=== PATIENT | female | born 1960 | race Caucasian/White ===

== ENCOUNTER 2018-12-11 18:00 | Emergency (ER) | payer OTHER ==
--- OUTSIDE RECORDS SUMMARY | 2018-12-11 18:02 | XMS REPORT | Clinical Summary ---
:1960 Author Organization [facility] Address [address] [place] [address] Care Team Providers Name Role Phone Baylee Hale Primary Care Provider Allergies Active Allergy Reactions Severity Noted Date Comments Brimonidine 05/07/2018 Atorvastatin 05/07/2018 Flu like symptoms - muscle cramping Moxifloxacin Anaphylaxis High 05/07/2018 Brimonidine Tartrate 09/09/2012 Bloody Red Eyes Codeine Nausea And Vomiting 05/07/2018 Medications Medication Sig Dispensed Refills Start Date End Date Status aspirin 81 MG EC Take 81 mg by 0 Active tablet mouth daily. dorzolamide-timolol 1 drop 2 0 Active (COSOPT) 22.3-6.8 (two) times mg/mL ophthalmic daily. solution latanoprost 1 drop 0 Active (XALATAN) 0.005 % nightly. ophthalmic solution levothyroxine Take 50 mcg 0 Active (SYNTHROID, by mouth LEVOTHROID) 50 MCG Every morning tablet on an empty stomach. multivitamin per Take 1 tablet 0 Active tablet by mouth daily. simvastatin (ZOCOR) Take 80 mg by 0 Active 80 MG tablet mouth nightly. ibandronate (BONIVA) Take 150 mg 0 05/07/2018 Discontinued 150 mg tablet by mouth every 30 (thirty) days Take in AM with glass of water prior to food, don't lie down for 30 minutes. . Active Problems Not on file Encounters Date Type Specialty Care Team Description 05/11/2018 Anesthesia Event Yamileth Rose MD 05/11/2018 Surgery Robel Verdugo,NASOLACRIMAL MD Elvis DUCT BALLOON DILATION 05/11/2018 Hospital Encounter Robel Verdugo Left nasolacrimal MD Elvis duct obstruction (Primary Dx) 05/07/2018 Hospital Encounter Pre-Admission Testing after 12/10/2017 Social History Tobacco Use Types Packs/Day Years Used Date Never Smoker Smokeless Tobacco: Never Used Alcohol Use Drinks/Week oz/Week Comments No Sex Assigned at Date Recorded Not on file Job Start Date Occupation Industry Not on file Not on file Not on file Travel History Travel Start Travel End No recent travel history available. Last Filed Vital Signs Vital Sign Reading Time Taken Blood Pressure 112/66 05/11/2018 2:45 PM CDT Pulse 66 05/11/2018 2:45 PM CDT Temperature 36.7 C (98 F) 05/11/2018 2:10 PM CDT Respiratory Rate 15 05/11/2018 2:45 PM CDT Oxygen Saturation 99% 05/11/2018 2:45 PM CDT Inhaled Oxygen Concentration - - Weight 59 kg (130 lb) 05/11/2018 12:17 PM CDT Height 167.6 cm (5' 6") 05/11/2018 12:17 PM CDT Body Mass Index 20.98 05/11/2018 12:17 PM CDT Plan of Treatment Not on file Procedures Procedure Name Priority Date/Time Associated Diagnosis Comments PROBING,NASOLACRIMAL 05/11/2018 1:06 PM Nasolacrimal duct DUCT BALLOON DILATION CDT obstruction, left after 12/10/2017 Results Not on fileafter 12/10/2017 Insurance Payer Benefit Plan / Group Subscriber ID Type Phone Address [facility] x[facility] HMO/POS CARE CHOICE (Home) [address] [place] [phone]
--- NOTE | 2018-12-11 20:27 | EDPHYS ---
Physician Documentation [facility] Name: Gisela Muñoz Age: 58 yrs Sex: Female : 1960 Arrival Date: 12/11/2018 Time: 18:05 Bed 12 Private MD: ED Physician Srinivas Leavitt HPI: 12/11 18:17 This 58 yrs old Female presents to ER via Ambulatory with complaints of Elbow pm1 Injury. 18:17 The patient or guardian complains of pain, that is acute. The complaints affect the pm1 right elbow. Context: The problem was sustained outdoors, resulted from a fall, while walking, tripped on edge of raised of concrete and hit her right elbow on concrete. No headache, head injury, neck pain, LOC. Onset: The symptoms/episode began/occurred today. Treatment prior to arrival includes: no previous treatment. Modifying factors: The symptoms are alleviated by remaining still, the symptoms are aggravated by movement, bending arm. Associated signs and symptoms: Pertinent positives: pain, swelling, Pertinent negatives: deformity, fever. The patient has not experienced similar symptoms in the past. The patient has not recently seen a physician. Historical: - Allergies: 18:11 Codeine; aj1 18:11 Avelox; aj1 - Home Meds: 18:11 glaucoma eye drops [Active]; levothyroxine oral [Active]; latanoprost 0.005 % aj1 ophthalmic drop 1 drop once daily [Active]; Pravachol Oral [Active]; dorzolamide 2 % ophthalmic drop 1 drop 3 times per day [Active]; - PMHx: 18:11 Hypothyroidism; Glaucoma; Hyperlipidemia; aj1 - PSHx: 18:11 Hysterectomy; aj1 - Immunization history:: Flu vaccine is up to date. - Social history:: Smoking status: Patient/guardian denies using tobacco. - Ebola Screening: : Patient denies travel to an Ebola-affected area in the 21 days before illness onset. ROS: 18:17 Constitutional: Negative for fever, chills, and weight loss, Eyes: Negative for injury, pm1 pain, redness, and discharge, ENT: Negative for injury, pain, and discharge, Neck: Negative for injury, pain, and swelling, Cardiovascular: Negative for chest pain, palpitations, and edema, Respiratory: Negative for shortness of breath, cough, wheezing, and pleuritic chest pain, Abdomen/GI: Negative for abdominal pain, nausea, vomiting, diarrhea, and constipation, Back: Negative for injury and pain, : Negative for injury, bleeding, discharge, and swelling. 18:17 Skin: Negative for injury, rash, and discoloration, Neuro: Negative for headache, weakness, numbness, tingling, and seizure. 18:17 MS/extremity: Positive for pain, swelling, of the right elbow, Negative for deformity. Exam: 18:17 Constitutional: This is a well developed, well nourished patient who is awake, alert, pm1 and in no acute distress. Head/Face: Normocephalic, atraumatic. Eyes: Pupils equal round and reactive to light, extra-ocular motions intact. Lids and lashes normal. Conjunctiva and sclera are non-icteric and not injected. Cornea within normal limits. Periorbital areas with no swelling, redness, or edema. ENT: Nares patent. No nasal discharge, no septal abnormalities noted. Tympanic membranes are normal and external auditory canals are clear. Oropharynx with no redness, swelling, or masses, exudates, or evidence of obstruction, uvula midline. Mucous membranes moist. Neck: Trachea midline, no thyromegaly or masses palpated, and no cervical lymphadenopathy. Supple, full range of motion without nuchal rigidity, or vertebral point tenderness. No Meningismus. Chest/axilla: Normal chest wall appearance and motion. Nontender with no deformity. No lesions are appreciated. Cardiovascular: Regular rate and rhythm with a normal S1 and S2. No gallops, murmurs, or rubs. Normal PMI, no JVD. No pulse deficits. Respiratory: Lungs have equal breath sounds bilaterally, clear to auscultation and percussion. No rales, rhonchi or wheezes noted. No increased work of breathing, no retractions or nasal flaring. Abdomen/GI: Soft, non-tender, with normal bowel sounds. No distension or tympany. No guarding or rebound. No evidence of tenderness throughout. Back: No spinal tenderness. No costovertebral tenderness. Full range of motion. Skin: Warm, dry with normal turgor. Normal color with no rashes, no lesions, and no evidence of cellulitis. 18:17 Musculoskeletal/extremity: Extremities: grossly normal except: noted in the right elbow: swelling, tenderness, There is no evidence of deformity, Pulses: noted to be 2+ in the right radial artery, the right hand Sensation intact. 18:17 Neuro: Orientation: is normal, Motor: is normal, moves all fours, Sensation: is normal, no obvious gross deficits, Gait: is steady, at a normal pace, without difficulty. Vital Signs: 18:11 BP 138 / 96; Pulse 87; Resp 18; Temp 98.1(O); Pulse Ox 98% on R/A; Weight 56.7 kg (R); aj1 Height 5 ft. 6 in. (167.64 cm) (R); 18:11 Body Mass Index 20.18 (56.70 kg, 167.64 cm) aj1 MDM: 18:17 Patient medically screened. pm1 18:18 ED course: Patient refused pain medications offered in the ER. pm1 18:53 Data reviewed: vital signs. Data interpreted: Pulse oximetry: on room air is 98 %. pm1 Interpretation: normal. 19:43 Counseling: I had a detailed discussion with the patient and/or guardian regarding: the pm1 historical points, exam findings, and any diagnostic results supporting the discharge/admit diagnosis, radiology results, the need for outpatient follow up, for definitive care, a orthopedic surgeon, to return to the emergency department if symptoms worsen or persist or if there are any questions or concerns that arise at home. 12/11 18:17 Order name: Elbow Right 3 View XRAY pm1 12/11 18:17 Order name: Sling; Complete Time: 18:19 pm1 12/11 18:17 Order name: Ice pack; Complete Time: 18:19 pm1 Administered Medications: No medications were administered Disposition: 12/11/18 20:26 Discharged to Home. Impression: Displaced fracture (avulsion) of lateral epicondyle of right humerus. - Condition is Stable. - Discharge Instructions: Elbow Fracture, Pediatric, How to Use a Sling. - Prescriptions for Tramadol 50 mg Oral Tablet - take 1 tablet by ORAL route every 8 hours as needed; 20 tablet. - Medication Reconciliation Form, Thank You Letter, Antibiotic Education, Prescription Opioid Use form. - Follow up: Emergency Department; When: As needed; Reason: Worsening of condition. Follow up: Private Physician; When: 2 - 3 days; Reason: Recheck today's complaints, Continuance of care, Re-evaluation by your physician. Follow up: Clive Travis MD; When: 2 - 3 days; Reason: Recheck today's complaints, Continuance of care, Re-evaluation by your physician. - Problem is new. - Symptoms have improved. Addendum: 12/13/2018 07:14 Co-signature as Attending Physician, Srinivas Leavitt MD I agree with the assessment and ayse carpenter plan of care. 07:14 Co-signature as Attending Physician, Srinivas Leavitt MD I agree with the assessment and k plan of care. Signatures: Dispatcher [employer] EDMS Radha Eisenberg RN RN aj1 Srinivas Leavitt MD MD [facility] Ck Robertson RN RN la1 Abner Shaw, FLOYD DRAW OPERATOR pm1 Corrections: (The following items were deleted from the chart) 12/11 20:30 20:26 12/11/2018 20:26 Discharged to Home. Impression: Displaced fracture (avulsion) of pm1 lateral epicondyle of right humerus. Condition is Stable. Discharge Instructions: Elbow Fracture, Pediatric, How to Use a Sling. Forms are Medication Reconciliation Form, Thank You Letter, Antibiotic Education, Prescription Opioid Use. Follow up: Emergency Department; When: As needed; Reason: Worsening of condition. Follow up: Private Physician; When: 2 - 3 days; Reason: Recheck today's complaints, Continuance of care, Re-evaluation by your physician. Problem is new. Symptoms have improved. pm1 20:56 20:30 12/11/2018 20:26 Discharged to Home. Impression: Displaced fracture (avulsion) of la1 lateral epicondyle of right humerus. Condition is Stable. Discharge Instructions: Elbow Fracture, Pediatric, How to Use a Sling. Prescriptions for Tramadol 50 mg Oral Tablet - take 1 tablet by ORAL route every 8 hours as needed; 20 tablet. and Forms are Medication Reconciliation Form, Thank You Letter, Antibiotic Education, Prescription Opioid Use. Follow up: Emergency Department; When: As needed; Reason: Worsening of condition. Follow up: Private Physician; When: 2 - 3 days; Reason: Recheck today's complaints, Continuance of care, Re-evaluation by your physician. Follow up: Clive Travis; When: 2 - 3 days; Reason: Recheck today's complaints, Continuance of care, Re-evaluation by your physician. Problem is new. Symptoms have improved. pm1
--- NOTE | 2018-12-11 20:27 | ER ---
Nurse's Notes [facility] Name: Gisela Muñoz Age: 58 yrs Sex: Female : 1960 Arrival Date: 12/11/2018 Time: 18:05 Bed 12 Private MD: Diagnosis: Displaced fracture (avulsion) of lateral epicondyle of right humerus Presentation: 12/11 18:06 Presenting complaint: Patient states: She tripped over concrete and she landed on her aj1 right right elbow. She has had pain and decreased ROM to the elbow since then. Transition of care: patient was not received from another setting of care. Onset of symptoms was December 11, 2018 at 14:30. Risk Assessment: Do you want to hurt yourself or someone else? Patient reports no desire to harm self or others. Initial Sepsis Screen: Does the patient meet any 2 criteria? No. Patient's initial sepsis screen is negative. Does the patient have a suspected source of infection? No. Patient's initial sepsis screen is negative. Care prior to arrival: None. 18:06 Method Of Arrival: Ambulatory [facility] 18:06 Acuity: SANDY 4 aj1 Triage Assessment: 18:11 General: Appears in no apparent distress. uncomfortable, Behavior is calm, cooperative, aj1 appropriate for age. Pain: Complains of pain in right elbow Pain currently is 4 out of 10 on a pain scale. at worst was 8 out of 10 on a pain scale. Neuro: Level of Consciousness is awake, alert, obeys commands. Cardiovascular: Patient's skin is warm and dry. Respiratory: Airway is patent Respiratory effort is even, unlabored, Respiratory pattern is regular, symmetrical. GI: No signs and/or symptoms were reported involving the gastrointestinal system. : No signs and/or symptoms were reported regarding the genitourinary system. Derm: No signs and/or symptoms reported regarding the dermatologic system. Skin is pink, warm \T\ dry. normal. Musculoskeletal: Range of motion: limited in right elbow. Injury Description: Patient tripped and landed on right elbow. Historical: - Allergies: 18:11 Codeine; aj1 18:11 Avelox; aj1 - Home Meds: 18:11 glaucoma eye drops [Active]; levothyroxine oral [Active]; latanoprost 0.005 % aj1 ophthalmic drop 1 drop once daily [Active]; Pravachol Oral [Active]; dorzolamide 2 % ophthalmic drop 1 drop 3 times per day [Active]; - PMHx: 18:11 Hypothyroidism; Glaucoma; Hyperlipidemia; aj1 - PSHx: 18:11 Hysterectomy; aj1 - Immunization history:: Flu vaccine is up to date. - Social history:: Smoking status: Patient/guardian denies using tobacco. - Ebola Screening: : Patient denies travel to an Ebola-affected area in the 21 days before illness onset. Screenin:14 Abuse screen: Denies threats or abuse. Denies injuries from another. Nutritional hb screening: No deficits noted. Tuberculosis screening: No symptoms or risk factors identified. Fall Risk None identified. Assessment: 18:15 Reassessment: see triage assessment. aj1 Vital Signs: 18:11 BP 138 / 96; Pulse 87; Resp 18; Temp 98.1(O); Pulse Ox 98% on R/A; Weight 56.7 kg (R); aj1 Height 5 ft. 6 in. (167.64 cm) (R); 18:11 Body Mass Index 20.18 (56.70 kg, 167.64 cm) aj1 ED Course: 18:05 Patient arrived in ED. mr 18:08 Triage completed. aj1 18:11 Arm band placed on Patient placed in an exam room. aj1 18:13 Abner Shaw NP is PHCP. pm1 18:13 Srinivas Leavitt MD is Attending Physician. pm1 18:13 Mariama Fernandez, RN is Primary Nurse. hb 18:15 Patient has correct armband on for positive identification. aj1 18:15 No provider procedures requiring assistance completed. aj1 18:31 Elbow Right 3 View XRAY In Process Unspecified. EDMS 20:30 Clive Travis MD is Referral Physician. pm1 20:55 Patient did not have IV access during this emergency room visit. la1 20:55 Orthoglass splint: posterior right elbow applied by cecy franklin tech checked by ERP. la1 Administered Medications: No medications were administered Outcome: 20:26 Discharge ordered by . pm1 20:55 Discharged to home ambulatory. la1 20:55 Condition: stable 20:55 Discharge instructions given to patient, Instructed on discharge instructions, follow up and referral plans. medication usage, Demonstrated understanding of instructions, follow-up care, medications, Prescriptions given X 1. 20:56 Patient left the ED. la1 Signatures: Dispatcher [employer] EDRadha Correia RN RN aj1 Khalida Vazquez, RICHARD Stover RN la1 Abner Shaw, CHECK AIRMAN CHECK AIRMAN pm1 Mariama Fernandez RN RN hb
--- NOTE | 2018-12-12 09:14 | RAD REPORT ---
EXAM DESCRIPTION: RAD - Elbow Right 3 View - 12/11/2018 6:30 pm CLINICAL HISTORY: Elbow pain FINDINGS: A moderately displaced fracture involves the lateral humeral condyle extending intraarticu larly. No dislocation seen
== END 2018-12-11 20:56 | disposition home or self-care (01) ==
LOC: ER 18:00
DX: S42.431A Displaced fracture (avulsion) of lateral epicondyle of right humerus, initial encounter for closed fracture (principal); W01.0XXA Fall on same level from slipping, tripping and stumbling without subsequent striking against object, initial encounter; Y93.01 Activity, walking, marching and hiking; E03.9 Hypothyroidism, unspecified; E78.5 Hyperlipidemia, unspecified; Z88.1 Allergy status to other antibiotic agents; Z88.5 Allergy status to narcotic agent
CPT/HCPCS: 99283